=== PATIENT | female | born 1975 | race Caucasian/White ===

== ENCOUNTER → 2019-11-15 | Outpatient (CLI) | payer OTHER ==
[~2019-11-15] MED LIST: LEXAPRO 10 MG T10 M1 PO; WELLBUTRIN SR150 MG PO
--- NOTE | ~2019-11-15 | CARD ---
[address] [address] CARDIAC CATH REPORT Name: DUY STAPLES Room: [facility]#: [id number] Admission: 11/15/19 Attend Phys: Irvin Dorsey MD Discharge: Date of : 73 Report #: [id number] THIS REPORT FOR: //name// cc: Hloley Tran MD, Cora A. MD ~ THIS REPORT FOR: //name// CC: Holley Dorsey DATE OF SERVICE: 11/15/2019 PROCEDURE: Implantable loop recorder removal. INDICATION: Implantable loop recorder at end of life. PROCEDURE DESCRIPTION: After informed consent was obtained, the area of the chest wall was prepped and draped in sterile fashion. The loop recorder was identified in the third intercostal space, left of the sternum. Local anesthesia was achieved with 1% lidocaine. After an initial incision was made, the device was explanted using Rakel forceps. The incision was then closed with Dermabond. The patient tolerated the procedure well without complication. IMPRESSION: 1. Implantable loop recorder at end of life. 2. Successful removal of implantable loop recorder. By: [id number] Dorsey MD, FACC /nt
== END | disposition home or self-care (01) ==
LOC: M.CL 09:56
DX: Z45.09 Encounter for adjustment and management of other cardiac device (principal); Z79.899 Other long term (current) drug therapy